=== PATIENT | female | born 1995 | race Hispanic/Latino ===

== ENCOUNTER → 2023-03-18 | Emergency (ER) | payer SELFPAY | LOC: EDH 19:12 | DX: S61.412A Laceration without foreign body of left hand, initial encounter (principal); Z53.21 Procedure and treatment not carried out due to patient leaving prior to being seen by health care provider; X58.XXXA Exposure to other specified factors, initial encounter; Y93.89 Activity, other specified; Y92.89 Other specified places as the place of occurrence of the external cause; Y99.8 Other external cause status ==